=== PATIENT | male | born 1995 | race American Indian/Alaskan Native ===

== ENCOUNTER 2019-12-06 10:23 | Emergency (ER) | payer SELFPAY ==
[2019-12-06 10:28] VITALS: BP 140/92
--- NOTE | 2019-12-06 11:07 | XRay Report ---
LEFT FINGERS 3 VIEWS INDICATION: left 5th finger pain/swelling. COMPARISON: None. IMPRESSION: There is posterior dislocation at the PIP joint of the fifth digit. No obvious associate d fracture. The remaining bony structures and joint spaces are unremarkable. Soft tissue swelling of the fifth digit is noted. Signer Name: Mac Gallardo Jr, MD Signed: 12/06/2019 11:02 AM Workstation Name: [id number]
[2019-12-06] MEDS ORDERED: HYDROcodone/ACETAMINOPHEN 7.5-325MG TAB PO ONE (11:36)
[2019-12-06] MEDS ORDERED: LIDOCAINE (1%) 10 MG/1 ML VIAL 20 ML MDV INFILTRATI ONE (11:38)
[2019-12-06] MEDS ORDERED: BUPIVACAINE/PF (0.5%) 5 MG/1 ML 10 ML VIAL INFILTRATI ONE (11:38)
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
--- NOTE | 2019-12-06 13:25 | XRay Report ---
Left hand-3 views INDICATION: post reduction left pinky. COMPARISON: Earlier today IMPRESSION: Interval relocation of the little finger at the PIP joint with no fracture or residual m alalignment. No significant DJD. Signer Name: Papo Smith MD Signed: 12/06/2019 1:21 PM Workstation Name: [id number]
== END 2019-12-06 13:59 | disposition home or self-care (01) ==
LOC: ED 10:23
DX: S63.277A Dislocation of unspecified interphalangeal joint of left little finger, initial encounter (principal); F17.200 Nicotine dependence, unspecified, uncomplicated; Z79.1 Long term (current) use of non-steroidal anti-inflammatories (NSAID); Z79.899 Other long term (current) drug therapy; X58.XXXA Exposure to other specified factors, initial encounter; Y93.89 Activity, other specified; Y92.89 Other specified places as the place of occurrence of the external cause; Y99.8 Other external cause status